=== PATIENT | female | born 1995 | race African-American/Black ===

== ENCOUNTER 2024-03-16 01:53 | Emergency (ER) | payer OTHER ==
[2024-03-16 02:27] VITALS: TEMP 98.1; BMI 32.9
[2024-03-16] MEDS ORDERED: FAMOTIDINE 20 MG/50 ML IVPB 20 MG/50 ML MG IVPB ONE ×2 (02:27→02:32)
[2024-03-16] MEDS ORDERED: ACETAMINOPHEN INJECTION 100 ML ONE (02:32)
[2024-03-16] MEDS ORDERED: morphine SULFATE 4 MG/ML VIAL ONE (02:33)
[2024-03-16] MEDS: morphine CARPU-JECT 4 MG/1 ML DISP.SYRIN IVPUSH ONE (02:39)
[2024-03-16] MEDS: MAG HYDROX/AL HYDROX/SIMETH 30 ML UNIT-DOSE CUP PO ONE (02:39)
[2024-03-16] MEDS: SODIUM CHLORIDE 0.9% 500 ML INFUS.BAG IV ONE (02:39)
[2024-03-16] MEDS: ACETAMINOPHEN 1000 MG/100 ML BAG IVPB ONE (02:40)
[2024-03-16 02:43] LABS: BASO % 0.4 % (0-2.0); EOS % 0.4 % (0-4.5); HEMATOCRIT 35.9 % (32.4-45.2); HEMOGLOBIN 11.6 GM/dL (10.7-15.3); LYMPH % 19.5 % (8-40); MCH 29.7 pg (25.7-33.7); MCHC 32.4 g/dl (32.0-36.0); MEAN CELL VOLUME 91.5 fl (80-96); MEAN PLT VOLUME 7.5 fl (7.5-11.1); MONO % 4.9 % (3.8-10.2); NEUT % 74.8 % (42.8-82.8); PLATELET COUNT 324 10^3/uL (134-434); RBC 3.92 M/mm3 (3.60-5.2); RDW 13.6 % (11.6-15.6); WHITE BLOOD COUNT 14.1 K/mm3 (4.0-10.0)
[2024-03-16] MEDS ORDERED: ONDANSETRON *ODT* 4 MG TABLET ONE ×2 (02:45→03:58)
[2024-03-16 02:47] LABS: PROTHROMBIN TIME (PATIENT) 11.5 SEC (9.7-13.0)
[2024-03-16 02:49] LABS: ACTIVATED PTT 28.5 SECONDS (25.2-36.5)
[2024-03-16] MEDS: ONDANSETRON *ODT* 4 MG TABLET SL ONE ×2 (02:51→04:48)
[2024-03-16 03:04] LABS: POTASSIUM 4.3 mmol/L (3.5-5.1)
[2024-03-16 03:06] LABS: CALCIUM 9.1 mg/dL (8.5-10.1)
[2024-03-16 03:07] LABS: ALBUMIN 4.1 g/dl (3.4-5.0); BLOOD UREA NITROGEN 18.3 mg/dL (7-18)
[2024-03-16 03:10] LABS: CREATININE 0.8 mg/dL (0.55-1.3)
[2024-03-16 03:11] LABS: BILIRUBIN,TOTAL 0.7 mg/dL (0.2-1); TOT PROT 7.4 g/dl (6.4-8.2)
[2024-03-16 03:48] VITALS: BP 144/61; PULSE 79; RESP 18
[2024-03-16 04:26] LABS: HIV INTERPRETATION NEGATIVE (NEGATIVE)
[2024-03-16 05:38] LABS: PH,URINE 6.5 (5.0-8.0); URINE APPEARANCE CLEAR; URINE BILIRUBIN NEGATIVE (NEGATIVE); URINE COLOR YELLOW; URINE GLUCOSE (UA) NEGATIVE (NEGATIVE); URINE KETONE TRACE (NEGATIVE); URINE LEUK ESTERASE NEGATIVE (NEGATIVE); URINE NITRITE NEGATIVE (NEGATIVE); URINE PROTEIN NEGATIVE (NEGATIVE)
== END 2024-03-16 04:55 | disposition home or self-care (01) ==
LOC: JER 01:53
PROC: 3E033NZ Introduction of Analgesics, Hypnotics, Sedatives into Peripheral Vein, Percutaneous Approach (ICD-10-PCS; principal; 2024-03-16)
PROC: 3E033NZ Introduction of Analgesics, Hypnotics, Sedatives into Peripheral Vein, Percutaneous Approach (ICD-10-PCS; 2024-03-16)
DX: R10.13 Epigastric pain (principal)
CPT/HCPCS: 36415; 71045-TC-FY; 80053; 81003; 84484; 84703; 85025; 85610; 85730; 86803; 87086; 87389; 93005; 93010; 99285-25; J0131; Q0162